=== PATIENT | male | born 1975 | race Two or more races ===

== ENCOUNTER 2017-09-17 16:40 | Inpatient (IN) | payer OTHER ==
[~2017-09-17] VITALS: Ht 172.7 cm; Wt 104.3 kg
[~2017-09-17 16:40] MED LIST: BYSTOLIC10 MG; CIPRO500 MG PO; FLAGYL500MG PO; LIPITOR40 MG; PROTONIX40 MG PO; [UNRECOGNIZED DRUG - OTHER]
[2017-09-17] MEDS ORDERED: ALDACTONE25 MG (18:16)
[2017-09-17] MEDS ORDERED: TRILIPIX45 MG (18:16)
[2017-09-17] MEDS ORDERED: AZOR 10-40 MG1 EACH (18:16)
[2017-09-17] MEDS ORDERED: SKELAXIN800 MG PO (19:04)
[2017-09-17] MEDS ORDERED: MEDROLPACK PO (19:04)
[2017-09-24] MEDS ORDERED: INTESTINEX680 M1 PO (13:38)
== END 2017-09-24 14:09 | disposition home or self-care (01) | DRG 690 ==
LOC: ER 16:40 → MEDJ 09-18 01:42
PROC: 8E0ZXY6 Isolation (ICD-10-PCS; principal; 2017-09-19)
DX: N39.0 Urinary tract infection, site not specified (principal); B37.49 Other urogenital candidiasis; B96.1 Klebsiella pneumoniae [K. pneumoniae] as the cause of diseases classified elsewhere; Z16.24 Resistance to multiple antibiotics; K52.89 Other specified noninfective gastroenteritis and colitis; R51 Headache

== ENCOUNTER 2017-10-03 19:50 | Emergency (ER) | payer OTHER ==
[~2017-10-03] VITALS: Ht 172.7 cm; Wt 104.3 kg
[~2017-10-03 19:50] MED LIST changes: +ALDACTONE25 MG; +AZOR 10-40 MG1 EACH; +INTESTINEX680 M1 PO; +MEDROLPACK PO; +SKELAXIN800 MG PO; +TRILIPIX45 MG
[2017-10-04] MEDS ORDERED: PROTONIX40 MG PO (06:37)
[2017-10-04] MEDS ORDERED: KETO10TA2 PO (06:37)
== END 2017-10-04 06:32 | disposition home or self-care (01) ==
LOC: ER 19:50
DX: R10.84 Generalized abdominal pain (principal)

== ENCOUNTER 2019-05-02 11:21 | Inpatient (IN) | payer OTHER ==
[~2019-05-02] VITALS: Ht 172.7 cm; Wt 101.2 kg
[~2019-05-02 11:21] MED LIST changes: +KETO10TA2 PO
[2019-05-02] MEDS ORDERED: JANUMET 50-1,01 EACH (11:43)
[2019-05-06] MEDS ORDERED: POM (MEDICAMENTO EN PO (11:07)
[2019-05-06] MEDS ORDERED: LEVAQUIN750 MG PO (11:07)
[2019-05-06] MEDS ORDERED: Lantus 1000 UNITS/10 SUBCUTANEO (11:07)
[2019-05-06] MEDS ORDERED: SPIRONOLACTONE25 MG PO (11:07)
[2019-05-06] MEDS ORDERED: Lipitor 10MG TABLET PO (11:07)
[2019-05-06] MEDS ORDERED: INTESTINEX680 M1 PO (11:07)
[2019-05-06] MEDS ORDERED: HUMALOG100 UNIT/1 SUBCUTANEO (11:07)
== END 2019-05-06 12:46 | disposition home or self-care (01) | DRG 728 ==
LOC: ER 11:21 → MEDJ 17:32 → SEC-K 17:32 → SURH 20:56 → SEC-K 21:31 → MEDJ 05-03 01:32
PROVIDERS: ADMIT Internal Medicine
PROC: 8E0ZXY6 Isolation (ICD-10-PCS; principal; 2019-05-02)
DX: N48.21 Abscess of corpus cavernosum and penis (principal); C18.8 Malignant neoplasm of overlapping sites of colon; Q54.1 Hypospadias, penile; E66.09 Other obesity due to excess calories; E11.65 Type 2 diabetes mellitus with hyperglycemia; B96.29 Other Escherichia coli [E. coli] as the cause of diseases classified elsewhere; B95.1 Streptococcus, group B, as the cause of diseases classified elsewhere; I10 Essential (primary) hypertension; Z79.4 Long term (current) use of insulin; Z51.11 Encounter for antineoplastic chemotherapy

== ENCOUNTER 2019-05-27 07:46 | Emergency (ER) | payer OTHER ==
[~2019-05-27] VITALS: Ht 172.7 cm; Wt 101.2 kg
[~2019-05-27 07:46] MED LIST changes: +HUMALOG100 UNIT/1 SUBCUTANEO; +JANUMET 50-1,01 EACH; +LEVAQUIN750 MG PO; +Lantus 1000 UNITS/10 SUBCUTANEO; +Lipitor 10MG TABLET PO; +POM (MEDICAMENTO EN PO; +SPIRONOLACTONE25 MG PO
== END 2019-05-27 14:11 | disposition home or self-care (01) ==
LOC: ER 07:46
DX: N39.0 Urinary tract infection, site not specified (principal); R30.0 Dysuria

== ENCOUNTER 2019-05-28 09:22 | Inpatient (IN) | payer OTHER ==
[~2019-05-28] VITALS: Ht 172.7 cm; Wt 103.4 kg
== END 2019-06-02 12:24 | DRG 690 ==
LOC: ER 09:22 → SEC-K 18:07 → SURH 18:07
PROVIDERS: ADMIT Urology
PROC: 8E0ZXY6 Isolation (ICD-10-PCS; principal; 2019-05-28)
DX: N39.0 Urinary tract infection, site not specified (principal); N41.0 Acute prostatitis

== ENCOUNTER 2020-04-07 11:44 | Emergency (ER) | payer OTHER ==
[~2020-04-07] VITALS: Ht 172.7 cm; Wt 106.6 kg
[2020-04-07] MEDS ORDERED: SANDOSTATIN LAR30 MG IM (11:57)
[2020-04-07] MEDS ORDERED: AZOR 10-40 MG1 EACH PO (11:57)
[2020-04-07] MEDS ORDERED: JANUMET XR 50-1 EAC1 PO (11:57)
[2020-04-07] MEDS ORDERED: BYSTOLIC10 MG PO (11:58)
[2020-04-07] MEDS ORDERED: SPIRONOLACTONE PO (11:58)
[2020-04-07] MEDS ORDERED: FENOFIBRATE50 MG PO (11:59)
== END 2020-04-07 16:06 | disposition home or self-care (01) ==
LOC: ER 11:44
DX: M54.2 Cervicalgia (principal); M62.838 Other muscle spasm; R00.2 Palpitations